=== PATIENT | male | born 1950 | race Caucasian/White ===

== ENCOUNTER 2018-09-04 12:34 | Emergency (ER) | payer OTHER ==
--- NOTE | 2018-09-04 13:07 | EDPHYS ---
Physician Documentation [facility] Name: Tom Arellano Age: 67 yrs Sex: Male : 1950 Arrival Date: 09/04/2018 Time: 12:37 Bed 5 Private MD: ED Physician Chong Patel HPI: 09/04 13:05 This 67 yrs old Male presents to ER via Ambulatory with complaints of pm1 Abnormal ECG. 13:05 The patient has been recently seen by a physician: earlier today, check up at the [place] pm1 clinic. Patient without any complaints. no chest pain, shortness of breath, weakness. He had a check up at the [place] and was sent here for evaluation of his "abnormal ECG." ECG shows atrial fibrillation with a rate of 71 BPM . Historical: - Allergies: 12:52 No Known Allergies; aj - Home Meds: 12:52 digoxin 125 mcg Oral tab 1 tab once daily [Active]; metoprolol tartrate 50 mg Oral tab aj 1 tab 2 times per day [Active]; furosemide 40 mg Oral tab 1 tab once daily [Active]; diltiazem HCl 240 mg Oral cp24 1 cap once daily [Active]; warfarin 6 mg Oral tab 1 tab once daily [Active]; - PMHx: 12:52 Atrial Fib; CHF; aj - PSHx: 12:52 Gastric Bypass; aj - Immunization history:: Adult Immunizations up to date. - Social history:: Smoking status: Patient uses tobacco products, chewing tobacco, Patient uses alcohol, on a daily basis. - Ebola Screening: : Patient negative for fever greater than or equal to 101.5 degrees Fahrenheit, and additional compatible Ebola Virus Disease symptoms Patient denies exposure to infectious person Patient denies travel to an Ebola-affected area in the 21 days before illness onset No symptoms or risks identified at this time. ROS: 13:05 Constitutional: Negative for fever, chills, and weight loss, Eyes: Negative for injury, pm1 pain, redness, and discharge, ENT: Negative for injury, pain, and discharge, Neck: Negative for injury, pain, and swelling, Cardiovascular: Negative for chest pain, palpitations, and edema, Respiratory: Negative for shortness of breath, cough, wheezing, and pleuritic chest pain, Abdomen/GI: Negative for abdominal pain, nausea, vomiting, diarrhea, and constipation, Back: Negative for injury and pain, : Negative for injury, bleeding, discharge, and swelling, MS/Extremity: Negative for injury and deformity, Skin: Negative for injury, rash, and discoloration, Neuro: Negative for headache, weakness, numbness, tingling, and seizure. Exam: 13:05 Constitutional: This is a well developed, well nourished patient who is awake, alert, pm1 and in no acute distress. Head/Face: Normocephalic, atraumatic. Eyes: Pupils equal round and reactive to light, extra-ocular motions intact. Lids and lashes normal. Conjunctiva and sclera are non-icteric and not injected. Cornea within normal limits. Periorbital areas with no swelling, redness, or edema. ENT: Nares patent. No nasal discharge, no septal abnormalities noted. Tympanic membranes are normal and external auditory canals are clear. Oropharynx with no redness, swelling, or masses, exudates, or evidence of obstruction, uvula midline. Mucous membranes moist. Neck: Trachea midline, no thyromegaly or masses palpated, and no cervical lymphadenopathy. Supple, full range of motion without nuchal rigidity, or vertebral point tenderness. No Meningismus. Chest/axilla: Normal chest wall appearance and motion. Nontender with no deformity. No lesions are appreciated. Cardiovascular: Regular rate and rhythm with a normal S1 and S2. No gallops, murmurs, or rubs. Normal PMI, no JVD. No pulse deficits. 13:05 Respiratory: Lungs have equal breath sounds bilaterally, clear to auscultation and percussion. No rales, rhonchi or wheezes noted. No increased work of breathing, no retractions or nasal flaring. Abdomen/GI: Soft, non-tender, with normal bowel sounds. No distension or tympany. No guarding or rebound. No evidence of tenderness throughout. Back: No spinal tenderness. No costovertebral tenderness. Full range of motion. Skin: Warm, dry with normal turgor. Normal color with no rashes, no lesions, and no evidence of cellulitis. MS/ Extremity: Pulses equal, no cyanosis. Neurovascular intact. Full, normal range of motion. 13:05 ECG was reviewed by the Attending Physician. Atrial fibrillation with 71 BPM 13:05 Neuro: Orientation: is normal, Motor: is normal, Gait: is steady, at a normal pace, without difficulty. Vital Signs: 12:52 BP 155 / 63; Pulse 76; Resp 18; Temp 97.8; Pulse Ox 98% on R/A; Weight 116.57 kg; aj Height 6 ft. 0 in. (182.88 cm); 12:52 Body Mass Index 34.86 (116.57 kg, 182.88 cm) aj MDM: 12:58 Patient medically screened. pm1 13:05 Data reviewed: vital signs. Data interpreted: Pulse oximetry: on room air is 98 %. pm1 Interpretation: normal. Counseling: I had a detailed discussion with the patient and/or guardian regarding: the historical points, exam findings, and any diagnostic results supporting the discharge/admit diagnosis, the need for outpatient follow up, to return to the emergency department if symptoms worsen or persist or if there are any questions or concerns that arise at home. Administered Medications: No medications were administered Disposition: 16:01 Co-signature as Attending Physician, Chong Patel MD. rn Disposition: 09/04/18 13:06 Discharged to Home. Impression: Unspecified atrial fibrillation. - Condition is Stable. - Discharge Instructions: Atrial Fibrillation. - Medication Reconciliation Form, Thank You Letter form. - Follow up: Emergency Department; When: As needed; Reason: Worsening of condition. Follow up: Private Physician; When: 2 - 3 days; Reason: Recheck today's complaints, Continuance of care, Re-evaluation by your physician. - Problem is new. - Symptoms have improved. Signatures: Edilia Abdul RN RN aj Williams, Irene, RN RN iw Nieto, Roman, MD MD rn Marinas, Patrick, NP [employer] pm1 Corrections: (The following items were deleted from the chart) 13:08 13:06 09/04/2018 13:06 Discharged to Home. Impression: Chronic atrial fibrillation. pm1 Condition is Stable. Forms are Medication Reconciliation Form, Thank You Letter, Antibiotic Education, Prescription Opioid Use. Follow up: Emergency Department; When: As needed; Reason: Worsening of condition. Follow up: Private Physician; When: 2 - 3 days; Reason: Recheck today's complaints, Continuance of care, Re-evaluation by your physician. Problem is new. Symptoms have improved. pm1 13:19 13:08 09/04/2018 13:06 Discharged to Home. Impression: Unspecified atrial fibrillation. iw Condition is Stable. Forms are Medication Reconciliation Form, Thank You Letter, Antibiotic Education, Prescription Opioid Use. Follow up: Emergency Department; When: As needed; Reason: Worsening of condition. Follow up: Private Physician; When: 2 - 3 days; Reason: Recheck today's complaints, Continuance of care, Re-evaluation by your physician. Problem is new. Symptoms have improved. pm1
--- NOTE | 2018-09-04 13:07 | ER ---
Nurse's Notes [facility] Name: Tom Arellano Age: 67 yrs Sex: Male : 1950 Arrival Date: 09/04/2018 Time: 12:37 Bed 5 Private MD: Diagnosis: Unspecified atrial fibrillation Presentation: 09/04 12:49 Presenting complaint: Patient states: Patient sent by [place] to be evaluated for abnormal aj EKG. Patient reports that he was at the [place] for a check up and they "sent me to make sure the medication for a-fib was working". Transition of care: patient was not received from another setting of care. Onset of symptoms was September 04, 2018. Risk Assessment: Do you want to hurt yourself or someone else? Patient reports no desire to harm self or others. Initial Sepsis Screen: Does the patient meet any 2 criteria? No. Patient's initial sepsis screen is negative. Does the patient have a suspected source of infection? No. Patient's initial sepsis screen is negative. Care prior to arrival: None. 12:49 Method Of Arrival: Ambulatory aj 12:49 Acuity: LUIS 4 aj Triage Assessment: 12:52 General: Appears in no apparent distress. comfortable, Behavior is calm, cooperative, aj appropriate for age. Pain: Denies pain. Neuro: Level of Consciousness is awake, alert, obeys commands, Oriented to person, place, time, situation, Appropriate for age. Respiratory: Reports shortness of breath on exertion Airway is patent Respiratory effort is even, unlabored, Respiratory pattern is regular, symmetrical, Onset: The symptoms/episode began/occurred suddenly, the patient reports symptoms have resolved. Derm: Skin is intact, is healthy with good turgor, Skin is pink, warm \\T\\ dry. normal. Historical: - Allergies: 12:52 No Known Allergies; aj - Home Meds: 12:52 digoxin 125 mcg Oral tab 1 tab once daily [Active]; metoprolol tartrate 50 mg Oral tab aj 1 tab 2 times per day [Active]; furosemide 40 mg Oral tab 1 tab once daily [Active]; diltiazem HCl 240 mg Oral cp24 1 cap once daily [Active]; warfarin 6 mg Oral tab 1 tab once daily [Active]; - PMHx: 12:52 Atrial Fib; CHF; aj - PSHx: 12:52 Gastric Bypass; aj - Immunization history:: Adult Immunizations up to date. - Social history:: Smoking status: Patient uses tobacco products, chewing tobacco, Patient uses alcohol, on a daily basis. - Ebola Screening: : Patient negative for fever greater than or equal to 101.5 degrees Fahrenheit, and additional compatible Ebola Virus Disease symptoms Patient denies exposure to infectious person Patient denies travel to an Ebola-affected area in the 21 days before illness onset No symptoms or risks identified at this time. Screenin:16 Abuse screen: Denies threats or abuse. Denies injuries from another. Nutritional iw screening: No deficits noted. Tuberculosis screening: No symptoms or risk factors identified. Fall Risk None identified. Assessment: 13:00 General: Appears in no apparent distress. Behavior is calm, cooperative. Pain: Denies iw pain. Neuro: Level of Consciousness is awake, alert, obeys commands. Cardiovascular: Capillary refill < 3 seconds in bilateral fingers Patient's skin is warm and dry. Rhythm is irregular. Respiratory: Airway is patent Respiratory effort is even, unlabored, Breath sounds are clear bilaterally. Derm: Skin is intact, is healthy with good turgor. Musculoskeletal: Range of motion: intact in all extremities. Vital Signs: 12:52 BP 155 / 63; Pulse 76; Resp 18; Temp 97.8; Pulse Ox 98% on R/A; Weight 116.57 kg; aj Height 6 ft. 0 in. (182.88 cm); 12:52 Body Mass Index 34.86 (116.57 kg, 182.88 cm) aj ED Course: 12:37 Patient arrived in ED. rg4 12:51 Triage completed. aj 12:52 Arm band placed on left wrist. Patient placed in an exam room. aj 12:55 Darwin Reynolds, [facility] is PHCP. pm1 12:55 Chong Patel MD is Attending Physician. pm1 13:00 Patient has correct armband on for positive identification. iw 13:18 No provider procedures requiring assistance completed. Patient did not have IV access iw during this emergency room visit. 13:19 Tere Garcia, RN is Primary Nurse. iw Administered Medications: No medications were administered Outcome: 13:06 Discharge ordered by . pm1 13:18 Discharged to home ambulatory. iw 13:18 Condition: good 13:18 Discharge instructions given to patient, Instructed on discharge instructions, Demonstrated understanding of instructions, follow-up care. 13:19 Patient left the ED. iw Signatures: Edilia Abdul RN RN aj Williams, Irene, RN RN iw Marinas, Patrick, RACQUET MAKER RACQUET MAKER pm1 Fanny [email or web address]
== END 2018-09-04 13:19 | disposition home or self-care (01) ==
LOC: ER 12:34
DX: I48.91 Unspecified atrial fibrillation (principal); I50.9 Heart failure, unspecified; Z72.0 Tobacco use; Z79.01 Long term (current) use of anticoagulants
CPT/HCPCS: 99281